=== PATIENT | female | born 1995 | race Caucasian/White ===

== ENCOUNTER 2019-01-21 06:31 | Emergency (ER) | payer OTHER ==
[2019-01-21] MEDS ORDERED: Ondansetron 4 MG/2 ML SDV IVPUSH ONE ×2 (06:39→11:01)
[2019-01-21] MEDS ORDERED: Sodium Chloride 0.9% 1,000 ML IV ONE (06:39)
--- NOTE | 2019-01-21 07:15 | EDM.PDOC ---
<Pieter Duenas J - Last Filed: 01/21/19 07:10> ED HPI GENERAL MEDICAL PROBLEM - General Chief Complaint: Abdominal Pain Stated Complaint: ABD PAIN Time Seen by Provider: 01/21/19 11:27 - History of Present Illness INITIAL COMMENTS - FREE TEXT/NARRATIVE: HISTORY AND PHYSICAL: History of present illness: Patient's 23-year-old white female presents with a concern of lower abdominal pain this woke her from sleep this morning was somewhat sharp in nature without associated nausea vomiting no vaginal discharge or bleeding she does have an IUD. There's been no reported trauma. Review of systems: As per history of present illness and below otherwise all systems reviewed and negative. Past medical history: As per history of present illness and as reviewed below otherwise noncontributory. Surgical history: As per history of present illness and as reviewed below otherwise noncontributory. Social history: No reported history of drug or alcohol abuse. Family history: As per history of present illness and as reviewed below otherwise noncontributory. Physical exam: HEENT: Atraumatic, normocephalic, pupils reactive, negative for conjunctival pallor or scleral icterus, mucous membranes moist, throat clear, neck supple, nontender, trachea midline. Lungs: Clear to auscultation, breath sounds equal bilaterally, chest nontender. Heart: S1S2, regular, negative for clicks, rubs, or JVD. Abdomen: Soft, nondistended, nonlocalized tenderness no rebound no guarding Negative for masses or hepatosplenomegaly. Negative for costovertebral tenderness. Pelvis: Stable nontender. Genitourinary: Deferred. Rectal: Deferred. Extremities: Atraumatic, negative for cords or calf pain. Neurovascular unremarkable. Neuro: Awake, alert, oriented. Cranial nerves II through XII unremarkable. Cerebellum unremarkable. Motor and sensory unremarkable throughout. Exam nonfocal. Diagnostics: CBC CMP UA UCG CT abdomen and pelvis Therapeutics: Saline 1 L bolus Impression: #1 abdominal pain Definitive disposition and diagnosis as appropriate pending reevaluation and review of above. lower abdomen Pain Score (Numeric/FACES): 5 - Related Data Allergies Allergy/AdvReac Type Severity Reaction Status Date / Time No Known Allergies Allergy Verified 01/21/19 06:34 Home Meds: Home Meds Albuterol [Ventolin HFA] 1 puff INH ASDIRECTED PRN 01/21/19 [History] Past Medical History Respiratory History: Reports: Asthma - Past Surgical History HEENT Surgical History: Reports: Oral Surgery Social & Family History - Family History Family Medical History: Noncontributory - Tobacco Use Smoking Status *Q: Never Smoker - Recreational Drug Use Recreational Drug Use: No ED ROS GENERAL - Review of Systems Review Of Systems: ROS reveals no pertinent complaints other than HPI. ED EXAM, GENERAL - Physical Exam Exam: See Below (The dictation) Course - Vital Signs Last Recorded V/S: Last Vital Signs Temp 97.3 F 01/21/19 06:35 Pulse 86 01/21/19 06:35 Resp 18 01/21/19 06:35 BP 121/61 01/21/19 06:35 Pulse Ox 98 01/21/19 06:35 - Orders/Labs/Meds Orders: Active Orders 24 hr Category Date Time Status HCG QUALITATIVE,URINE [URCHEM] Stat Lab 01/21/19 06:39 Ordered UA RFX ZAFAR AND CULT IF INDIC [URIN] Stat Lab 01/21/19 06:39 Ordered Saline Lock Insert [OM.PC] Stat Oth 01/21/19 06:39 Ordered Labs: Laboratory Tests 01/21/19 01/21/19 01/21/19 Range/Units 06:46 06:46 06:46 WBC 7.73 (4.0-11.0) K/uL RBC 4.45 (4.30-5.90) M/uL Hgb 14.0 (12.0-16.0) g/dL Hct 40.8 (36.0-46.0) % MCV 91.7 (80.0-98.0) fL MCH 31.5 (27.0-32.0) pg MCHC 34.3 (31.0-37.0) g/dL RDW Std Deviation 40.1 (28.0-62.0) fl RDW Coeff of Kennedy 12 (11.0-15.0) % Plt Count 272 (150-400) K/uL MPV 10.80 (7.40-12.00) fL Nucleated RBC % 0.0 /100WBC Nucleated RBCs # 0 K/uL Sodium 140 (136-145) mmol/L Potassium 3.7 (3.5-5.1) mmol/L Chloride 105 (98-107) mmol/L Carbon Dioxide 25.9 (21.0-32.0) mmol/L BUN 8 (7.0-18.0) mg/dL Creatinine 0.8 (0.6-1.0) mg/dL Est Cr Clr Drug Dosing 94.44 mL/min Estimated GFR (MDRD) > 60.0 ml/min Glucose 96 (74-106) mg/dL Calcium 8.8 (8.5-10.1) mg/dL Total Bilirubin 1.6 H (0.2-1.0) mg/dL AST 15 (15-37) IU/L ALT 17 (14-63) IU/L Alkaline Phosphatase 84 (46-116) U/L Total Protein 7.6 (6.4-8.2) g/dL Albumin 3.4 (3.4-5.0) g/dL Globulin 4.2 H (2.6-4.0) g/dL Albumin/Globulin Ratio 0.8 L (0.9-1.6) HCG, Qual NEGATIVE (NEG) Meds: Medications Discontinued Medications Generic Name Dose Route Start Last Admin Trade Name Freq PRN Reason Stop Dose Admin Sodium Chloride 1,000 mls @ 999 mls/hr 01/21/19 06:39 01/21/19 06:47 Normal Saline IV 01/21/19 07:39 999 mls/hr .Bolus ONE Administration Morphine Sulfate 2 mg 01/21/19 10:50 01/21/19 11:02 Morphine IVPUSH 01/21/19 10:51 2 mg ONETIME ONE Administration Ondansetron HCl 4 mg 01/21/19 06:39 01/21/19 06:47 Zofran IVPUSH 01/21/19 06:40 4 mg ONETIME ONE Administration Ondansetron HCl 8 mg 01/21/19 11:01 01/21/19 11:02 Zofran IVPUSH 01/21/19 11:02 8 mg ONETIME ONE Administration Ondansetron HCl Confirm 01/21/19 10:59 Zofran Administered 01/21/19 11:00 Dose 8 mg .ROUTE .STK-MED ONE Departure - Departure Disposition: Home, Self-Care 01 Clinical Impression: Hemorrhagic cyst - Discharge Information Referrals: PCP,None [Primary Care Provider] - Forms: ED Department Discharge Additional Instructions: Medication as prescribed Return if symptoms persist or worsen Follow-up with call center receptionist in one week sooner as needed [facility] [address] [place] [id number] The following information is given to patients seen in the emergency department who are being discharged to home. This information is to outline your options for follow-up care. We provide all patients seen in our emergency department with a follow-up referral. The need for follow-up, as well as the timing and circumstances, are variable depending upon the specifics of your emergency department visit. If you don't have a primary care physician on staff, we will provide you with a referral. We always advise you to contact your personal physician following an emergency department visit to inform them of the circumstance of the visit and for follow-up with them and/or the need for any referrals to a consulting specialist. The emergency department will also refer you to a specialist when appropriate. This referral assures that you have the opportunity for follow-up care with a specialist. All of these measure are taken in an effort to provide you with optimal care, which includes your follow-up. Under all circumstances we always encourage you to contact your private physician who remains a resource for coordinating your care. When calling for follow-up care, please make the office aware that this follow-up is from your recent emergency room visit. If for any reason you are refused follow-up, please contact the [facility] emergency department at and asked to speak to the emergency department charge nurse. <Howie Whitman - Last Filed: 01/21/19 11:27> ED HPI GENERAL MEDICAL PROBLEM - General Source of Information: Reports: Patient, Other - History of Present Illness INITIAL COMMENTS - FREE TEXT/NARRATIVE: Patient presents as above I've seen and examined the patient and agree with above HEENT grossly within normal limits chest clear CV regular abd soft nondistended diffuse nonfocal tenderness no guarding or rebound no mass lesion appreciated Vaginal exam deferred by patient Extremities full range of motion strength 5 out of 5 no edema [employer] alert nonfoc Lab as below Normal saline bolus Morphine Zofran Impression Hemorrhagic cyst Vision discussed in detail with Dr. Acuna call center receptionist radiation control specialist today, she'll CT imaging was calling for ultrasound to rule out torsion, Dr. Acuna has reviewed the case/imaging findings consistent with hemorrhagic cyst recommended follow- up next week Definitive disposition and diagnosis as appropriate pending reevaluation and review of above ED ROS GENERAL - Review of Systems Review Of Systems: See Below ED EXAM, GENERAL - Physical Exam Exam: See Below Departure - Departure Time of Disposition: 11:26 Condition: Good
[2019-01-21 07:16] LABS: BLOOD UREA NITROGEN,BUN 8 mg/dL (7.0-18.0); CARBON DIOXIDE,CO2 25.9 mmol/L (21.0-32.0); CHLORIDE,CL 105 mmol/L (98-107); GLUCOSE RANDOM 96 mg/dL (74-106); POTASSIUM,K 3.7 mmol/L (3.5-5.1); SODIUM,NA 140 mmol/L (136-145)
--- NOTE | 2019-01-21 08:14 | CT ---
INDICATION: Abdominal pain rated at 7/10 early this morning with fever, nausea and dizziness. TECHNIQUE: CT of the abdomen and pelvis performed without oral or IV contrast. FINDINGS: Mild benign nodular thickening left adrenal gland likely related to hyperplasia. IUD in satisfactory position in the uterus. Greater than small amount of free fluid in the pelvis posteriorly is somewhat complex and may be physiologic and related to a ruptured hemorrhagic cyst. 4.5 cm rounded low-density mass in the left mid pelvis anteriorly measuring on image 111 which should be a complex ovarian lesion. Small amount of fluid and stranding adjacent to the left ovary. Given the patient`s age this a large hemorrhagic cyst but is not specific. Small amounts of additional fluid anteriorly in the mid pelvis bilaterally. This pelvic free fluid extends into the lower pericolic gutters. The appendix is normal. Remainder negative. IMPRESSION: 1. Low-density rounded 4.5 cm lesion in the left mid pelvis anteriorly should be a complex left ovarian lesion. Small amounts of fluid in the pelvis both anteriorly and posteriorly may be related to this the ovarian lesion but are nonspecific. Minimal stranding in the fat about the left ovary. Given the stranding in the fat about the left ovary and the size of the left ovarian lesion, pelvic ultrasound could be performed to further characterize the lesion and ensure there is blood flow in the left ovary without evidence of ovarian torsion. 2. IUD. Other findings as above. Please note that all CT scans at this facility use dose modulation, iterative reconstruction, and/or weight-based dosing when appropriate to reduce radiation dose to as low as reasonably achievable. Dictated by Des Avery MD @ Jan 21 2019 8:05AM Signed by Dr. Des Avery @ Jan 21 2019 8:12AM
--- NOTE | 2019-01-21 10:28 | US ---
INDICATION: Pain. Mass in left ovary on today`s CT. Evaluate for ovarian torsion. TECHNIQUE: Transvaginal pelvic ultrasound. COMPARISON: Today`s CT Findings : Uterus measured 7.4 x 3.6 x 4.7 cm and is negative for focal mass. IUD within the endometrium. Small amount of fluid within the endometrium. Endometrial stripe measures 7 mm and where seen is grossly normal. Most endometrium is obscured by the IUD. Scattered small amounts of free fluid in the abdomen both anteriorly and posteriorly as was seen on today`s CT including fluid adjacent to the left ovarian mass. Right ovary measures 1.7 x 1.4 x 1.5 cm and is normal with small follicles. Small amount of fluid adjacent to the right ovary. A normal left ovary is not visualized. In the left mid pelvis, there was a complex 6.0 x 4.2 x 3.1 cm solid and cystic mass. Since a normal left ovary was not visualized separate from this mass, I suspect this is a diffusely abnormal left ovary. Diagnostic considerations are between a large complex cystic and solid mass in the left ovary versus a diffusely abnormal left ovary from ovarian torsion. These 2 etiologies cannot be distinguished. Mild blood flow along the peripherally of the lesion which would argue for this to be a large ovarian lesion with minimal preserved blood flow and mild surrounding remaining ovary. Clinical correlation recommended as well as followup ultrasound. The possibility at missed ovarian torsion resulting in a largely necrotic left ovary is not entirely excluded. Remainder negative. IMPRESSION: 1. 6.0 cm complex cystic and solid mass with blood flow along its peripheral rim in the mid-pelvis is most likely a complex cystic and solid left ovarian cyst lesion which would be favored over a diffusely abnormal left ovary. Findings correlate with the changes on today`s CT. Diagnostic considerations are between a lesion largely replacing the left ovary with minimal blood flow in and rim of residual left ovarian tissue versus is a abnormal partially necrotic left ovary related to missed ovarian torsion. The former is favored but the latter is not entirely excluded. Clinical correlation and followup recommended. 2. Right ovary normal. 3. Small amounts of free fluid in the pelvis anteriorly and posteriorly as described previously. 4. IUD within the endometrium. Small amount of fluid in the endometrial canal. 5. No focal masses in the uterus that. Dictated by Des Avery MD @ Jan 21 2019 10:13AM Signed by Dr. Des Avery @ Jan 21 2019 10:25AM
[2019-01-21] MEDS ORDERED: Morphine 2 MG/ML Syringe IVPUSH ONE (10:50)
[2019-01-21] MEDS ORDERED: Ondansetron 4 MG/2 ML SDV ONE (10:59)
== END 2019-01-21 11:43 | disposition home or self-care (01) ==
LOC: MW.ED 06:31
DX: N83.202 Unspecified ovarian cyst, left side (principal); J45.909 Unspecified asthma, uncomplicated
CPT/HCPCS: 36415; 74176; 76856; 80053; 84703; 85027; 96361; 96374; 96375; 96376; 99284; J2270; J2405; J7040